=== PATIENT | male | born 1950 | race African-American/Black ===

== ENCOUNTER 2019-05-03 12:45 | Inpatient (IN) ==
[2019-05-03] MEDS ORDERED: ONDANSETRON 4 MG/2 ML VIAL IV STA (13:45)
[2019-05-03] MEDS ORDERED: SODIUM CHLORIDE 0.9% 1,000 ML IV STA ×2 (13:45→15:46)
[2019-05-03] MEDS ORDERED: HYDROmorphone 2 MG/1 ML VIAL IV STA (13:45)
[2019-05-03 14:57] LABS: Basophils % 0.2 % (0.0-0.8); Eosinophils % 0.1 % (0.00-10.9); Hematocrit 30.7 VOL% (42.0-52.0); Hemoglobin 10.3 GM/DL (14.0-18.0); Immature Granulocytes % 0.7 %; Immature Granulocytes Absolute 0.08 #; Lymphocytes # 0.7 10*3/uL (1.4-4.0); Lymphocytes % 5.8 % (21.2-54.2); Mean Corpuscular HGB Conc 33.6 GM/DL (32-36); Mean Corpuscular Volume 84.6 FL (87-102); Mean Platelet Volume 9.5 FL (9.6-12.0); Monocytes % 3.6 % (1.7-12.7); Neutrophils % 89.6 % (38.7-73.9); Platelet Count 255 T/CUMM (130-400); Red Blood Count 3.63 MC/CUMM (3.8-5.5); White Blood Count 11.5 T/CUMM (4-12)
[2019-05-03 15:13] LABS: Albumin 3.7 G/DL (3.4-5.0); Bilirubin,Total 0.7 MG/DL (0.2-1.0); Calcium 9.8 MG/DL (8.5-10.1); Osmolality,Calculated 275.2 MOS/KG (273-304); Total Protein 7.4 G/DL (6.4-8.3)
[2019-05-03] MEDS ORDERED: ACETAMINOPHEN 325 MG TABLET PO PRN (17:05)
[2019-05-03] MEDS: DEXTROSE 5% NACL 0.45% 1,000 ML IV SCH (20:21)
[2019-05-03] MEDS: ONDANSETRON 4 MG/2 ML VIAL IV PRN (22:50)
[2019-05-04] MEDS: DEXTROSE 5% NACL 0.45% 1,000 ML IV SCH ×5 (02:34→19:10)
[2019-05-04 04:25] LABS: Basophils % 0.3 % (0.0-0.8); Eosinophils % 0.2 % (0.00-10.9); Hematocrit 33.1 VOL% (42.0-52.0); Hemoglobin 10.6 GM/DL (14.0-18.0); Immature Granulocytes % 0.6 %; Immature Granulocytes Absolute 0.06 #; Lymphocytes # 0.6 10*3/uL (1.4-4.0); Lymphocytes % 6.3 % (21.2-54.2); Mean Corpuscular Volume 86.4 FL (87-102); Mean Platelet Volume 9.4 FL (9.6-12.0); Monocytes % 3.9 % (1.7-12.7); Neutrophils % 88.7 % (38.7-73.9); Platelet Count 237 T/CUMM (130-400); Red Blood Count 3.83 MC/CUMM (3.8-5.5); Red Cell Distribution Width 14.2 % (9.3-17.3); White Blood Count 10.1 T/CUMM (4-12)
[2019-05-04 04:53] LABS: Albumin 3.5 G/DL (3.4-5.0); Bilirubin,Total 0.8 MG/DL (0.2-1.0); Calcium 9.7 MG/DL (8.5-10.1); Osmolality,Calculated 276.1 MOS/KG (273-304); Total Protein 7.1 G/DL (6.4-8.3)
[2019-05-04] MEDS: MORPHINE 4 MG/1 ML VIAL IV PRN ×3 (06:02→20:39)
[2019-05-04] MEDS ORDERED: PANTOPRAZOLE 40 MG TABLET PO SCH (09:00)
[2019-05-04] MEDS: FAMOTIDINE 20 MG/2 ML VIAL IV SCH ×3 (09:35→20:38)
[2019-05-04] MEDS: ENOXAPARIN 40 MG/0.4 ML SYRINGE SUBCUT SCH (11:37)
[2019-05-04] MEDS ORDERED: cefOXitin 1,000 MG in SYRINGE 1 EACH IV ONE (13:10)
[2019-05-04] MEDS ORDERED: EPINEPHrine 1 MG/ML VIAL ONE (15:19)
[2019-05-04] MEDS ORDERED: BUPIVACAINE 0.5% 50 ML VIAL ONE (15:19)
[2019-05-04] MEDS ORDERED: DEXAMETHASONE 4 MG/1 ML VIAL ONE (15:19)
[2019-05-04] MEDS ORDERED: LIDOCAINE 1% 5 ML VIAL ONE (15:20)
[2019-05-04] MEDS ORDERED: ALBUMIN 5% 12.5 GM/250 ML VIAL IV ONE (16:24)
[2019-05-04 17:35] LABS: Apearance,Urine CLEAR (Clear); Bilirubin,Urine Negative (Negative); Blood, Urine Small mg/dL (Negative); Glucose,Urine (UA) Negative (Negative); Hyaline Casts,Urine 3 /LPF (0-3); Ketones,Urine Negative (Negative); Mucus,Urine Occasional /LPF (Occasional); Nitrite,Urine Negative (Negative); Protein,Urine Negative; Squamous Epithelial Cell,Urine Occasional /HPF (0-10); Urine Color Yellow (Yellow); Urine Urobilinogen < 2.0 EU/DL (0.2-1.0); WBC,Urine <1 /HPF (0-6)
[2019-05-04] MEDS ORDERED: fentaNYL 100 MCG/2 ML VIAL ONE (17:44)
[2019-05-04] MEDS ORDERED: SEVOFLURANE 1 UNIT/15 MINUTE INH ONE (17:44)
[2019-05-04] MEDS ORDERED: PROPOFOL 200 MG/20 ML VIAL IV ONE (17:44)
[2019-05-04] MEDS ORDERED: MIDAZOLAM 2 MG/2 ML VIAL ONE (17:44)
[2019-05-04] MEDS ORDERED: ROCURONIUM 100 MG/10 ML VIAL IV ONE (17:45)
[2019-05-04] MEDS ORDERED: ONDANSETRON 4 MG/2 ML VIAL ONE (17:45)
[2019-05-04] MEDS ORDERED: NEOSTIGMINE 10 MG/10 ML VIAL ONE (17:45)
[2019-05-04] MEDS ORDERED: SODIUM CHLORIDE 0.9% 1,000 ML IV ONE (17:45)
[2019-05-04] MEDS ORDERED: SUCCINYLCHOLINE 200 MG/10 ML VIAL ONE (17:45)
[2019-05-04] MEDS ORDERED: ETOMIDATE 40 MG/20 ML VIAL IV ONE (17:45)
[2019-05-04] MEDS ORDERED: PHENYLEPHRINE 1 MG/10 ML SYRINGE IV ONE (17:45)
[2019-05-04] MEDS ORDERED: GLYCOPYRROLATE 0.4 MG/2 ML VIAL ONE (17:45)
[2019-05-04] MEDS ORDERED: LACTATED RINGERS 1,000 ML IV ONE (17:45)
[2019-05-04] MEDS ORDERED: SODIUM CHLORIDE 0.9% 100 ML IV ONE (17:45)
[2019-05-04] MEDS: HYDROmorphone 2 MG/1 ML VIAL IV PRN ×4 (17:48→18:09)
[2019-05-04] MEDS ORDERED: ONDANSETRON 4 MG/2 ML VIAL IV PRN (17:50)
[2019-05-04] MEDS: cefOXitin 1,000 MG in SYRINGE 1 EACH IV SCH (21:49)
[2019-05-04] MEDS ORDERED: LACTATED RINGERS 500 ML IV ONE (23:00)
[2019-05-05] MEDS: DEXTROSE 5% NACL 0.45% 1,000 ML IV SCH ×5 (03:00→20:31)
[2019-05-05] MEDS: MORPHINE 4 MG/1 ML VIAL IV PRN ×3 (03:11→17:10)
[2019-05-05] MEDS: cefOXitin 1,000 MG in SYRINGE 1 EACH IV SCH ×4 (03:12→20:31)
[2019-05-05 04:27] LABS: Basophils % 0.4 % (0.0-0.8); Hematocrit 32.2 VOL% (42.0-52.0); Hemoglobin 10.6 GM/DL (14.0-18.0); Immature Granulocytes % 0.4 %; Immature Granulocytes Absolute 0.02 #; Lymphocytes # 0.2 10*3/uL (1.4-4.0); Lymphocytes % 3.4 % (21.2-54.2); Mean Corpuscular HGB Conc 32.9 GM/DL (32-36); Mean Corpuscular Volume 85.6 FL (87-102); Mean Platelet Volume 9.3 FL (9.6-12.0); Monocytes % 3.3 % (1.7-12.7); Neutrophils % 92.5 % (38.7-73.9); Platelet Count 204 T/CUMM (130-400); Red Blood Count 3.76 MC/CUMM (3.8-5.5); Red Cell Distribution Width 13.9 % (9.3-17.3); White Blood Count 5.5 T/CUMM (4-12)
[2019-05-05 04:50] LABS: Calcium 8.7 MG/DL (8.5-10.1)
[2019-05-05 04:56] LABS: Acanthocytes Few; Band Neutrophils 23 % (0-10); Eosinophils 1 % (0-10); Lymphocytes 5 % (20-55); Ovalocytes Few; Platelet Estimate Normal; Segmented Neutrophils 66 % (50-85); Total Cells Counted 100
[2019-05-05] MEDS: FAMOTIDINE 20 MG/2 ML VIAL IV SCH ×2 (08:24→20:31)
[2019-05-05] MEDS: ENOXAPARIN 40 MG/0.4 ML SYRINGE SUBCUT SCH (10:09)
[2019-05-05] MEDS ORDERED: MAGNESIUM SULF RIDER 2 GM in PREMIX 1 EACH IV PRN (11:10)
[2019-05-06] MEDS: cefOXitin 1,000 MG in SYRINGE 1 EACH IV SCH ×4 (04:09→21:17)
[2019-05-06] MEDS: DEXTROSE 5% NACL 0.45% 1,000 ML IV SCH ×3 (04:38→21:22)
[2019-05-06] MEDS: MORPHINE 4 MG/1 ML VIAL IV PRN ×2 (04:44→19:18)
[2019-05-06 05:53] LABS: Basophils % 0.2 % (0.0-0.8); Hemoglobin 8.8 GM/DL (14.0-18.0); Immature Granulocytes % 0.9 %; Immature Granulocytes Absolute 0.09 #; Lymphocytes # 0.4 10*3/uL (1.4-4.0); Lymphocytes % 3.4 % (21.2-54.2); Mean Corpuscular HGB Conc 32.6 GM/DL (32-36); Mean Corpuscular Volume 85.4 FL (87-102); Mean Platelet Volume 10.2 FL (9.6-12.0); Neutrophils % 94.5 % (38.7-73.9); Platelet Count 179 T/CUMM (130-400); Red Blood Count 3.16 MC/CUMM (3.8-5.5); Red Cell Distribution Width 13.9 % (9.3-17.3); White Blood Count 10.6 T/CUMM (4-12)
[2019-05-06 06:15] LABS: Osmolality,Calculated 273.1 MOS/KG (273-304)
[2019-05-06 06:27] LABS: Anisocytosis 1+; Band Neutrophils 10 % (0-10); Hypochromasia 1+; Lymphocytes 3 % (20-55); Microcytosis 1+; Ovalocytes 1+; Platelet Estimate Adequate; Segmented Neutrophils 86 % (50-85); Total Cells Counted 100
[2019-05-06] MEDS: FAMOTIDINE 20 MG/2 ML VIAL IV SCH ×2 (09:07→21:19)
[2019-05-06] MEDS: ENOXAPARIN 40 MG/0.4 ML SYRINGE SUBCUT SCH (11:05)
[2019-05-07] MEDS: cefOXitin 1,000 MG in SYRINGE 1 EACH IV SCH ×2 (02:51→09:50)
[2019-05-07] MEDS: DEXTROSE 5% NACL 0.45% 1,000 ML IV SCH ×3 (05:30→21:46)
[2019-05-07] MEDS: FAMOTIDINE 20 MG/2 ML VIAL IV SCH ×2 (09:50→21:44)
[2019-05-07] MEDS: ENOXAPARIN 40 MG/0.4 ML SYRINGE SUBCUT SCH (12:00)
[2019-05-07] MEDS: ONDANSETRON 4 MG/2 ML VIAL IV PRN (21:40)
[2019-05-07] MEDS: MORPHINE 4 MG/1 ML VIAL IV PRN (21:42)
[2019-05-08 04:44] LABS: Basophils % 0.1 % (0.0-0.8); Hematocrit 22.6 VOL% (42.0-52.0); Hemoglobin 7.4 GM/DL (14.0-18.0); Immature Granulocytes % 0.4 %; Immature Granulocytes Absolute 0.03 #; Lymphocytes # 0.2 10*3/uL (1.4-4.0); Lymphocytes % 2.5 % (21.2-54.2); Mean Corpuscular HGB Conc 32.7 GM/DL (32-36); Mean Corpuscular Volume 85.3 FL (87-102); Monocytes % 2.5 % (1.7-12.7); Neutrophils % 94.5 % (38.7-73.9); Platelet Count 150 T/CUMM (130-400); Red Blood Count 2.65 MC/CUMM (3.8-5.5); Red Cell Distribution Width 13.6 % (9.3-17.3); White Blood Count 8.3 T/CUMM (4-12)
[2019-05-08 05:20] LABS: Band Neutrophils 7 % (0-10); Calcium 9.4 MG/DL (8.5-10.1); Eosinophils 1 % (0-10); Lymphocytes 3 % (20-55); Osmolality,Calculated 276.8 MOS/KG (273-304); Segmented Neutrophils 87 % (50-85); Total Cells Counted 100
[2019-05-08 05:21] LABS: Anisocytosis 1+; Poikilocytosis 1+
[2019-05-08] MEDS: DEXTROSE 5% NACL 0.45% 1,000 ML IV SCH ×3 (06:43→23:30)
[2019-05-08] MEDS: FAMOTIDINE 20 MG/2 ML VIAL IV SCH ×2 (09:48→22:02)
[2019-05-08] MEDS: ENOXAPARIN 40 MG/0.4 ML SYRINGE SUBCUT SCH (12:30)
[2019-05-09 04:42] LABS: Hematocrit 21.1 VOL% (42.0-52.0); Hemoglobin 7.1 GM/DL (14.0-18.0)
[2019-05-09] MEDS: DEXTROSE 5% NACL 0.45% 1,000 ML IV SCH ×2 (08:25→15:29)
[2019-05-09] MEDS: FAMOTIDINE 20 MG/2 ML VIAL IV SCH (08:33)
[2019-05-09 12:13] LABS: Hematocrit 26.1 VOL% (42.0-52.0); Hemoglobin 8.5 GM/DL (14.0-18.0)
[2019-05-09 12:39] VITALS: BP 118/73
[2019-05-09] MEDS: ENOXAPARIN 40 MG/0.4 ML SYRINGE SUBCUT SCH (15:05)
== END 2019-05-09 15:42 | disposition home health service (06) | DRG 329 ==
LOC: N.ED 12:45 → N.EDINP 17:05 → N.4E 18:32 → N.ICU 05-04 19:09 → N.3E 05-06 11:14
PROVIDERS: ADMIT Surgery; ATTEND Surgery

== ENCOUNTER 2019-05-25 21:04 | Inpatient (IN) ==
[2019-05-25] MEDS ORDERED: PIPERACILLIN/TAZOBACTAM 3,375 MG in SODIUM CHLORIDE 0.9% 100 ML IV STA ×2 (23:49→23:52)
[2019-05-26] MEDS ORDERED: MORPHINE 4 MG/1 ML VIAL IV PRN (02:38)
[2019-05-26] MEDS ORDERED: guaiFENesin/DM ER 600-30 MG TABLET PO PRN (02:38)
[2019-05-26] MEDS ORDERED: ACETAMINOPHEN 325 MG TABLET PO PRN (02:38)
[2019-05-26] MEDS ORDERED: ONDANSETRON 4 MG/2 ML VIAL IV PRN (02:38)
[2019-05-26] MEDS ORDERED: diphenhydrAMINE CAP 25 MG CAPSULE PO PRN (02:38)
[2019-05-26] MEDS ORDERED: NICOTINE 21 MG/24 HR PATCH TRANSDERM PRN (02:38)
[2019-05-26] MEDS ORDERED: VANCOMYCIN INJ 1,000 MG in SODIUM CHLORIDE 0.9% 250 ML IV ONE (04:30)
[2019-05-26 06:42] LABS: Basophils % 0.4 % (0.0-0.8); Eosinophils # 0.1 10*3/uL (0.0-0.87); Eosinophils % 1.1 % (0.00-10.9); Hematocrit 27.6 VOL% (42.0-52.0); Hemoglobin 8.4 GM/DL (14.0-18.0); Immature Granulocytes Absolute 0.07 #; Lymphocytes # 0.8 10*3/uL (1.4-4.0); Lymphocytes % 10.3 % (21.2-54.2); Mean Corpuscular HGB Conc 30.4 GM/DL (32-36); Mean Corpuscular Volume 90.8 FL (87-102); Mean Platelet Volume 9.3 FL (9.6-12.0); Monocytes % 9.1 % (1.7-12.7); Neutrophils % 78.1 % (38.7-73.9); Platelet Count 351 T/CUMM (130-400); Red Blood Count 3.04 MC/CUMM (3.8-5.5); Red Cell Distribution Width 14.8 % (9.3-17.3); White Blood Count 7.3 T/CUMM (4-12)
[2019-05-26 06:43] LABS: Basophils % 0.4 % (0.0-0.8); Eosinophils # 0.1 10*3/uL (0.0-0.87); Eosinophils % 1.1 % (0.00-10.9); Hematocrit 27.3 VOL% (42.0-52.0); Hemoglobin 8.6 GM/DL (14.0-18.0); Immature Granulocytes % 1.2 %; Immature Granulocytes Absolute 0.09 #; Lymphocytes # 0.7 10*3/uL (1.4-4.0); Lymphocytes % 9.4 % (21.2-54.2); Mean Corpuscular HGB Conc 31.5 GM/DL (32-36); Mean Corpuscular Volume 89.8 FL (87-102); Mean Platelet Volume 9.6 FL (9.6-12.0); Monocytes % 7.6 % (1.7-12.7); Neutrophils % 80.3 % (38.7-73.9); Platelet Count 353 T/CUMM (130-400); Red Blood Count 3.04 MC/CUMM (3.8-5.5); Red Cell Distribution Width 14.8 % (9.3-17.3); White Blood Count 7.2 T/CUMM (4-12)
[2019-05-26 07:03] LABS: Calcium 9.1 MG/DL (8.5-10.1)
[2019-05-26 07:07] LABS: Risk Ratio 2.16; VLDL CHOLESTEROL 8.6 MG/DL
[2019-05-26] MEDS: ALBUTEROL/IPRATROPIUM 3 ML NEB RESP TX SCH ×3 (07:41→19:42)
[2019-05-26] MEDS: PANTOPRAZOLE 40 MG TABLET PO SCH (09:09)
[2019-05-26] MEDS: FUROSEMIDE 40 MG/4 ML VIAL IV SCH ×2 (09:11→16:28)
[2019-05-26] MEDS: PIPERACILLIN/TAZOBACTAM 3,375 MG in SODIUM CHLORIDE 0.9% 100 ML IV SCH ×2 (09:13→17:43)
[2019-05-26] MEDS: VANCOMYCIN INJ 1,000 MG in SODIUM CHLORIDE 0.9% 250 ML IV SCH (16:29)
[2019-05-27] MEDS: PIPERACILLIN/TAZOBACTAM 3,375 MG in SODIUM CHLORIDE 0.9% 100 ML IV SCH ×3 (01:41→17:49)
[2019-05-27] MEDS: ALBUTEROL/IPRATROPIUM 3 ML NEB RESP TX SCH ×4 (02:17→19:29)
[2019-05-27] MEDS: VANCOMYCIN INJ 1,000 MG in SODIUM CHLORIDE 0.9% 250 ML IV SCH ×2 (06:02→16:05)
[2019-05-27 08:25] LABS: Albumin 2.4 G/DL (3.4-5.0); Bilirubin,Total 0.6 MG/DL (0.2-1.0); Calcium 8.6 MG/DL (8.5-10.1); Osmolality,Calculated 282.3 MOS/KG (273-304); Total Protein 6.3 G/DL (6.4-8.3)
[2019-05-27 08:45] LABS: Basophils % 0.3 % (0.0-0.8); Eosinophils # 0.1 10*3/uL (0.0-0.87); Eosinophils % 1.1 % (0.00-10.9); Hematocrit 27.1 VOL% (42.0-52.0); Hemoglobin 8.3 GM/DL (14.0-18.0); Immature Granulocytes % 1.4 %; Immature Granulocytes Absolute 0.09 #; Lymphocytes # 0.7 10*3/uL (1.4-4.0); Lymphocytes % 10.5 % (21.2-54.2); Mean Corpuscular HGB Conc 30.6 GM/DL (32-36); Mean Corpuscular Volume 90.3 FL (87-102); Mean Platelet Volume 9.3 FL (9.6-12.0); Monocytes % 8.6 % (1.7-12.7); Neutrophils % 78.1 % (38.7-73.9); Platelet Count 384 T/CUMM (130-400); Red Cell Distribution Width 14.6 % (9.3-17.3); White Blood Count 6.3 T/CUMM (4-12)
[2019-05-27] MEDS: POLYETHYLENE GLYCOL POWDER 17 GM PACK PO SCH (08:56)
[2019-05-27] MEDS: PANTOPRAZOLE 40 MG TABLET PO SCH (08:56)
[2019-05-27] MEDS: FUROSEMIDE 40 MG/4 ML VIAL IV SCH ×2 (08:56→16:04)
[2019-05-28] MEDS: ALBUTEROL/IPRATROPIUM 3 ML NEB RESP TX SCH ×3 (00:56→14:08)
[2019-05-28] MEDS: PIPERACILLIN/TAZOBACTAM 3,375 MG in SODIUM CHLORIDE 0.9% 100 ML IV SCH (02:58)
[2019-05-28] MEDS: VANCOMYCIN INJ 1,000 MG in SODIUM CHLORIDE 0.9% 250 ML IV SCH (05:30)
[2019-05-28 06:51] LABS: Basophils % 0.5 % (0.0-0.8); Eosinophils # 0.1 10*3/uL (0.0-0.87); Eosinophils % 1.6 % (0.00-10.9); Hematocrit 26.6 VOL% (42.0-52.0); Hemoglobin 8.3 GM/DL (14.0-18.0); Immature Granulocytes % 1.8 %; Immature Granulocytes Absolute 0.11 #; Lymphocytes # 0.7 10*3/uL (1.4-4.0); Lymphocytes % 11.3 % (21.2-54.2); Mean Corpuscular HGB Conc 31.2 GM/DL (32-36); Mean Corpuscular Volume 89.9 FL (87-102); Mean Platelet Volume 9.5 FL (9.6-12.0); Monocytes % 9.3 % (1.7-12.7); Neutrophils % 75.5 % (38.7-73.9); Platelet Count 376 T/CUMM (130-400); Red Blood Count 2.96 MC/CUMM (3.8-5.5); Red Cell Distribution Width 14.6 % (9.3-17.3); White Blood Count 6.2 T/CUMM (4-12)
[2019-05-28 07:19] LABS: Albumin 2.6 G/DL (3.4-5.0); Bilirubin,Total 0.4 MG/DL (0.2-1.0); Total Protein 6.4 G/DL (6.4-8.3)
[2019-05-28] MEDS: POLYETHYLENE GLYCOL POWDER 17 GM PACK PO SCH (08:27)
[2019-05-28] MEDS: PANTOPRAZOLE 40 MG TABLET PO SCH (08:27)
[2019-05-28] MEDS: FUROSEMIDE 40 MG/4 ML VIAL IV SCH (08:28)
[2019-05-28] MEDS ORDERED: LEVOFLOXACIN 750 MG TABLET PO SCH (09:00)
[2019-05-28 16:43] VITALS: BP 110/76
[2019-05-29] MEDS ORDERED: FUROSEMIDE 20 MG TABLET PO SCH (09:00)
== END 2019-05-28 15:14 | disposition home or self-care (01) | DRG 291 ==
LOC: EDUNIT# → N.ED 21:04 → N.EDINP 05-26 02:38 → SUATTDRO 05-26 02:38 → N.5E 05-26 03:15
PROVIDERS: ADMIT Internal Medicine Nephrology; ATTEND Internal Medicine

== ENCOUNTER 2022-07-29 10:52 | Inpatient (IN) ==
[2022-07-29] MEDS ORDERED: SODIUM CHLORIDE 0.9% 1,000 ML IV STA (11:19)
[2022-07-29 11:28] LABS: Basophils % 0.2 % (0.0-0.8); Hematocrit 25.1 VOL% (42.0-52.0); Hemoglobin 8.4 GM/DL (14.0-18.0); Immature Granulocytes % 6.7 %; Immature Granulocytes Absolute 1.34 #; Lymphocytes # 0.2 10*3/uL (1.4-4.0); Lymphocytes % 1.1 % (21.2-54.2); Mean Corpuscular HGB Conc 33.5 GM/DL (32-36); Mean Corpuscular Volume 87.8 FL (87-102); Mean Platelet Volume 9.8 FL (9.6-12.0); Monocytes # 0.5 10*3/uL (0.11-0.8); Monocytes % 2.7 % (1.7-12.7); Neutrophils % 89.3 % (38.7-73.9); Platelet Count 304 T/CUMM (130-400); Red Blood Count 2.86 MC/CUMM (3.8-5.5); Red Cell Distribution Width 20.9 % (9.3-17.3); White Blood Count 19.9 T/CUMM (4-12)
[2022-07-29 11:43] LABS: Albumin 1.6 G/DL (3.4-5.0); Calcium 9.3 MG/DL (8.5-10.1); Osmolality,Calculated 297.5 MOS/KG (273-304); Potassium 3.9 MMOL/L (3.5-5.1); Total Protein 5.9 G/DL (6.4-8.2)
[2022-07-29 11:45] LABS: Bilirubin,Total 21.4 MG/DL (0.20-1.00)
[2022-07-29 12:20] LABS: Band Neutrophils 1 % (0-10); Lymphocytes 2 % (20-55); Metamyelocytes 1 %; Myelocytes 1 %; Total Cells Counted 100
[2022-07-29 12:21] LABS: Ovalocytes Slight; Platelet Estimate Increased; Polychromasia Slight; Target Cells 1+
[2022-07-29 12:58] LABS: INR 1.3; PT Patient Result 14.3 SECS (10.1-12.1)
[2022-07-29 13:14] LABS: Bacteria,Urine Many /HPF (Few); RBC,Urine 107 /HPF (0-4); Squamous Epithelial Cell,Urine Occasional /HPF (0-10); Urine Color Amber (Yellow)
[2022-07-29 13:15] LABS: Bilirubin,Urine Large mg/dL (Negative); Blood, Urine Large mg/dL (Negative); Glucose,Urine (UA) 100 mg/dL (Negative); Ketones,Urine Negative (Negative); Nitrite,Urine Negative (Negative); Protein,Urine 30 mg/dL (Negative); Urine Appearance Slightly Cloudy (Clear); Urine Urobilinogen 0.2 eU/dL (<2.0)
[2022-07-29] MEDS ORDERED: ACETAMINOPHEN 325 MG TABLET PO PRN (13:36)
[2022-07-29] MEDS ORDERED: GLUCAGON 1 MG VIAL IM PRN (13:36)
[2022-07-29] MEDS ORDERED: DEXTROSE 10% 250 ML BAG IV PRN (13:36)
[2022-07-29] MEDS ORDERED: ENOXAPARIN 30 MG/0.3 ML SYRINGE SUBCUT SCH (14:00)
[2022-07-29] MEDS: SODIUM CHLORIDE 0.9% 1,000 ML IV SCH (17:27)
[2022-07-29 17:52] LABS: Hematocrit 23.4 VOL% (42.0-52.0); Hemoglobin 7.9 GM/DL (14.0-18.0)
[2022-07-29] MEDS: MEGESTROL 40 MG TABLET PO SCH (20:25)
[2022-07-29 22:53] LABS: Hematocrit 23.4 VOL% (42.0-52.0); Hemoglobin 7.8 GM/DL (14.0-18.0)
[2022-07-30] MEDS: SODIUM CHLORIDE 0.9% 1,000 ML IV SCH ×3 (01:51→14:16)
[2022-07-30 05:43] LABS: Basophils % 0.2 % (0.0-0.8); Hematocrit 24.8 VOL% (42.0-52.0); Hemoglobin 8.5 GM/DL (14.0-18.0); Immature Granulocytes % 6.1 %; Lymphocytes # 0.2 10*3/uL (1.4-4.0); Lymphocytes % 1.2 % (21.2-54.2); Mean Corpuscular HGB Conc 34.3 GM/DL (32-36); Mean Corpuscular Volume 87.3 FL (87-102); Mean Platelet Volume 9.8 FL (9.6-12.0); Monocytes # 0.7 10*3/uL (0.11-0.8); Monocytes % 3.6 % (1.7-12.7); Neutrophils % 88.9 % (38.7-73.9); Platelet Count 319 T/CUMM (130-400); Red Blood Count 2.84 MC/CUMM (3.8-5.5); Red Cell Distribution Width 20.7 % (9.3-17.3); White Blood Count 19.6 T/CUMM (4-12)
[2022-07-30 06:10] LABS: Albumin 1.5 G/DL (3.4-5.0); Osmolality,Calculated 296.1 MOS/KG (273-304); Potassium 4.7 MMOL/L (3.5-5.1); Total Protein 5.9 G/DL (6.4-8.2)
[2022-07-30 06:18] LABS: Band Neutrophils 3 % (0-10); Hypochromia 1+; Lymphocytes 2 % (20-55); Metamyelocytes 1 %; Target Cells 1+; Total Cells Counted 100
[2022-07-30 06:19] LABS: Microcytosis Slight
[2022-07-30] MEDS: MEGESTROL 40 MG TABLET PO SCH ×2 (09:33→20:13)
[2022-07-30] MEDS: PANTOPRAZOLE 40 MG VIAL IV SCH (09:34)
[2022-07-30] MEDS: ONDANSETRON 4 MG/2 ML VIAL IV PRN (09:34)
[2022-07-31] MEDS: SODIUM CHLORIDE 0.9% 1,000 ML IV SCH ×3 (03:07→16:58)
[2022-07-31 05:26] LABS: Calcium 9.2 MG/DL (8.5-10.1); Osmolality,Calculated 297.8 MOS/KG (273-304)
[2022-07-31] MEDS: PANTOPRAZOLE 40 MG VIAL IV SCH (09:53)
[2022-07-31] MEDS: MEGESTROL 40 MG TABLET PO SCH ×2 (09:53→20:32)
[2022-08-01] MEDS: SODIUM CHLORIDE 0.9% 1,000 ML IV SCH ×4 (02:35→21:46)
[2022-08-01 05:06] LABS: Basophils % 0.1 % (0.0-0.8); Eosinophils % 0.1 % (0.00-10.9); Hemoglobin 7.2 GM/DL (14.0-18.0); Immature Granulocytes Absolute 1.16 #; Lymphocytes # 0.3 10*3/uL (1.4-4.0); Lymphocytes % 1.4 % (21.2-54.2); Mean Corpuscular HGB Conc 34.3 GM/DL (32-36); Mean Corpuscular Volume 86.4 FL (87-102); Mean Platelet Volume 10.1 FL (9.6-12.0); Monocytes # 0.7 10*3/uL (0.11-0.8); Monocytes % 3.7 % (1.7-12.7); Neutrophils % 88.7 % (38.7-73.9); Platelet Count 292 T/CUMM (130-400); Red Blood Count 2.43 MC/CUMM (3.8-5.5); Red Cell Distribution Width 20.2 % (9.3-17.3); White Blood Count 19.5 T/CUMM (4-12)
[2022-08-01 05:29] LABS: Albumin 1.4 G/DL (3.4-5.0); Calcium 8.8 MG/DL (8.5-10.1); Osmolality,Calculated 297.7 MOS/KG (273-304); Potassium 3.8 MMOL/L (3.5-5.1); Total Protein 4.9 G/DL (6.4-8.2)
[2022-08-01 06:47] LABS: Hypochromia Slight; Lymphocytes 1 % (20-55); Microcytosis Slight; Platelet Estimate Adequate; Target Cells Few; Total Cells Counted 100
[2022-08-01] MEDS: MEGESTROL 40 MG TABLET PO SCH ×2 (09:00→20:28)
[2022-08-01] MEDS: PANTOPRAZOLE 40 MG VIAL IV SCH (09:40)
[2022-08-01] MEDS ORDERED: INDOMETHACIN SUPP 50 MG SUPP RECTAL ONE (11:25)
[2022-08-01] MEDS ORDERED: SODIUM CHLORIDE 0.9% 1,000 ML IV PRN (11:37)
[2022-08-01] MEDS: LACTATED RINGERS 1,000 ML IV SCH (12:56)
[2022-08-02] MEDS: SODIUM CHLORIDE 0.9% 1,000 ML IV SCH ×4 (02:55→22:56)
[2022-08-02] MEDS: MEGESTROL 40 MG TABLET PO SCH ×2 (09:51→22:47)
[2022-08-02] MEDS: PANTOPRAZOLE 40 MG VIAL IV SCH (10:08)
[2022-08-02] MEDS: LACTATED RINGERS 1,000 ML IV SCH (15:44)
[2022-08-03 05:33] LABS: Basophils # 0.1 10*3/uL (0.0-0.2); Basophils % 0.3 % (0.0-0.8); Hematocrit 30.1 VOL% (42.0-52.0); Immature Granulocytes Absolute 1.45 #; Lymphocytes # 0.3 10*3/uL (1.4-4.0); Lymphocytes % 1.6 % (21.2-54.2); Mean Corpuscular HGB Conc 34.6 GM/DL (32-36); Mean Corpuscular Volume 87.2 FL (87-102); Monocytes # 0.8 10*3/uL (0.11-0.8); NRBC # 0.02 10*3/uL; Neutrophils % 87.1 % (38.7-73.9); Platelet Count 288 T/CUMM (130-400); Red Cell Distribution Width 18.2 % (9.3-17.3); White Blood Count 20.8 T/CUMM (4-12)
[2022-08-03 05:44] LABS: Osmolality,Calculated 301.4 MOS/KG (273-304); Potassium 3.8 MMOL/L (3.5-5.1)
[2022-08-03 05:47] LABS: Red Blood Count 3.45 MC/CUMM (3.8-5.5)
[2022-08-03 05:48] LABS: Hemoglobin 10.4 GM/DL (14.0-18.0)
[2022-08-03] MEDS: SODIUM CHLORIDE 0.9% 1,000 ML IV SCH (06:12)
[2022-08-03 07:17] LABS: Band Neutrophils 3 % (0-10); Hypochromia Slight; Lymphocytes 1 % (20-55); Myelocytes 2 %; Total Cells Counted 100
[2022-08-03 07:18] LABS: Burr Cells Slight; Microcytosis 1+; Polychromasia Slight; Target Cells Few
[2022-08-03 07:19] LABS: Platelet Estimate Normal
[2022-08-03] MEDS: MEGESTROL 40 MG TABLET PO SCH ×2 (08:33→20:20)
[2022-08-03] MEDS: PANTOPRAZOLE 40 MG VIAL IV SCH (08:33)
[2022-08-03] MEDS: LACTATED RINGERS 1,000 ML IV SCH (12:10)
[2022-08-03] MEDS: ONDANSETRON 4 MG/2 ML VIAL IV PRN (13:24)
[2022-08-04] MEDS: LACTATED RINGERS 1,000 ML IV SCH ×2 (00:40→12:18)
[2022-08-04] MEDS: MEGESTROL 40 MG TABLET PO SCH ×2 (08:43→20:18)
[2022-08-04 09:33] LABS: INR 2.6; PT Patient Result 26.5 SECS (10.1-12.1)
[2022-08-04 09:34] LABS: Basophils # 0.1 10*3/uL (0.0-0.2); Basophils % 0.3 % (0.0-0.8); Hematocrit 28.9 VOL% (42.0-52.0); Hemoglobin 10.2 GM/DL (14.0-18.0); Immature Granulocytes % 6.7 %; Immature Granulocytes Absolute 1.36 #; Lymphocytes # 0.3 10*3/uL (1.4-4.0); Lymphocytes % 1.3 % (21.2-54.2); Mean Corpuscular HGB Conc 35.3 GM/DL (32-36); Mean Corpuscular Volume 84.5 FL (87-102); Mean Platelet Volume 9.7 FL (9.6-12.0); Monocytes # 0.6 10*3/uL (0.11-0.8); Neutrophils % 88.7 % (38.7-73.9); Platelet Count 277 T/CUMM (130-400); Red Blood Count 3.42 MC/CUMM (3.8-5.5); Red Cell Distribution Width 17.8 % (9.3-17.3); White Blood Count 20.3 T/CUMM (4-12)
[2022-08-04 09:38] LABS: Albumin 1.1 G/DL (3.4-5.0); Calcium 8.6 MG/DL (8.5-10.1); Osmolality,Calculated 308.3 MOS/KG (273-304); Potassium 3.7 MMOL/L (3.5-5.1); Total Protein 4.2 G/DL (6.4-8.2)
[2022-08-04 09:45] LABS: Bilirubin,Total 18.1 MG/DL (0.20-1.00)
[2022-08-04 10:04] LABS: Band Neutrophils 1 % (0-10); Lymphocytes 2 % (20-55); Platelet Estimate Adequate; Total Cells Counted 100
[2022-08-04 10:05] LABS: Hypochromia Slight; Microcytosis Slight
[2022-08-04] MEDS: DEXTROSE 5% 1,000 ML IV SCH (11:00)
[2022-08-04] MEDS: PANTOPRAZOLE 40 MG VIAL IV SCH (11:28)
[2022-08-04] MEDS ORDERED: SUCCINYLCHOLINE 200 MG/10 ML VIAL ONE (14:34)
[2022-08-04] MEDS ORDERED: LIDOCAINE 2% 5 ML VIAL ONE (14:34)
[2022-08-04] MEDS ORDERED: propofoL 200 MG/20 ML VIAL IV ONE (14:34)
[2022-08-04] MEDS ORDERED: INDOMETHACIN SUPP 50 MG SUPP RECTAL ONE ×2 (15:00→15:11)
[2022-08-04] MEDS ORDERED: PHENYLEPHRINE 10 MG/1 ML VIAL IV ONE (15:15)
[2022-08-04] MEDS ORDERED: SEVOFLURANE 1 UNIT/15 MINUTE INH ONE (15:32)
[2022-08-04] MEDS ORDERED: PHENYLEPHRINE 1 MG/10 ML SYRINGE IV ONE (15:32)
[2022-08-04] MEDS ORDERED: SODIUM CHLORIDE 0.9% 250 ML IV ONE (15:32)
[2022-08-05] MEDS: DEXTROSE 5% 1,000 ML IV SCH ×2 (01:54→17:32)
[2022-08-05 05:17] LABS: Basophils % 0.2 % (0.0-0.8); Eosinophils % 0.1 % (0.00-10.9); Hematocrit 27.5 VOL% (42.0-52.0); Hemoglobin 9.5 GM/DL (14.0-18.0); Immature Granulocytes % 7.3 %; Lymphocytes # 0.3 10*3/uL (1.4-4.0); Lymphocytes % 1.5 % (21.2-54.2); Mean Corpuscular HGB Conc 34.5 GM/DL (32-36); Mean Corpuscular Volume 86.8 FL (87-102); Mean Platelet Volume 10.1 FL (9.6-12.0); Monocytes # 0.5 10*3/uL (0.11-0.8); Monocytes % 2.5 % (1.7-12.7); Neutrophils % 88.4 % (38.7-73.9); Platelet Count 255 T/CUMM (130-400); Red Blood Count 3.17 MC/CUMM (3.8-5.5); Red Cell Distribution Width 17.9 % (9.3-17.3); White Blood Count 17.9 T/CUMM (4-12)
[2022-08-05 05:33] LABS: Calcium 8.7 MG/DL (8.5-10.1); Osmolality,Calculated 304.8 MOS/KG (273-304); Potassium 3.2 MMOL/L (3.5-5.1); Total Protein 4.6 G/DL (6.4-8.2)
[2022-08-05 05:37] LABS: Bilirubin,Total 17.3 MG/DL (0.20-1.00)
[2022-08-05 05:41] LABS: Band Neutrophils 1 % (0-10); Lymphocytes 4 % (20-55); Platelet Estimate Adequate; Total Cells Counted 100
[2022-08-05 05:42] LABS: Burr Cells Slight; Hypochromia Slight; Microcytosis Slight; Target Cells Slight
[2022-08-05] MEDS: MEGESTROL 40 MG TABLET PO SCH (08:34)
[2022-08-05] MEDS: PANTOPRAZOLE 40 MG VIAL IV SCH (08:35)
[2022-08-05] MEDS ORDERED: ZINC OXIDE 16% PASTE 57 GM TUBE TOP SCH (12:30)
[2022-08-05] MEDS ORDERED: DEXAMETHASONE 4 MG TABLET PO SCH (15:00)
[2022-08-05 16:03] VITALS: BP 85/52
[2022-08-05] MEDS: LACTATED RINGERS 1,000 ML IV SCH (17:06)
[2022-08-05] MEDS: POTASSIUM CHLORIDE 20 MEQ TABLET PO SCH (17:06)
[2022-08-05] MEDS ORDERED: MORPHINE 2 MG/1 ML SYRINGE IV ONE (17:49)
[2022-08-05] MEDS ORDERED: MORPHINE 2 MG/1 ML SYRINGE ONE (17:49)
== END 2022-08-05 20:25 | disposition expired | DRG 374 ==
LOC: N.ED 10:52 → SUATTDRO 13:33 → N.TELEN 13:33
PROVIDERS: ADMIT Internal Medicine Geriatric Medicine; ATTEND Internal Medicine